=== PATIENT | female | born 2000 | race Caucasian/White ===

== ENCOUNTER 2023-07-14 11:37 | Day surgery (SDC) | payer OTHER ==
[~2023-07-14] VITALS: Ht 162.6 cm; Wt 59.4 kg
[2023-07-14] MEDS ORDERED: MIDAZOLAM 2 MG/2 ML VIAL ONE (14:47)
[2023-07-14] MEDS ORDERED: fentaNYL citrate 0.05 MG/ML VIAL ONE (14:47)
[2023-07-14] MEDS: MIDAZOLAM 2 MG/2 ML VIAL IVP ONE (14:52)
[2023-07-14] MEDS: fentaNYL citrate 0.05 MG/ML VIAL IVP ONE (14:53)
[2023-07-14] MEDS: LIDOCAINE 2% 100 MG/5 ML UJET TP ONE (15:07)
== END 2023-07-14 16:10 | disposition home or self-care (01) ==
LOC: MDS 11:37 → MMU 12:19 → MDS 16:10
PROVIDERS: ATTEND Internal Medicine Gastroenterology
DX: K62.5 Hemorrhage of anus and rectum (principal); K63.5 Polyp of colon; K63.3 Ulcer of intestine; E78.00 Pure hypercholesterolemia, unspecified
CPT/HCPCS: 45380; J2250; J3010